=== PATIENT | female | born 1980 | race Caucasian/White ===

== ENCOUNTER 2017-06-07 13:50 | Emergency (ER) | payer OTHER ==
[2017-06-07] MEDS ORDERED: diphenhydrAMINE 50 MG/ML VIAL ONE (14:15)
[2017-06-07] MEDS ORDERED: Metoclopramide HCl 10 MG/2 ML VIAL ONE (14:15)
[2017-06-07] MEDS ORDERED: Haloperidol Lactate 5 MG/ML VIAL ONE (15:13)
--- NOTE | 2017-06-07 15:32 | CT ---
CT BRAIN WITHOUT CONTRAST: Date: 06/07/17 PROVIDED CLINICAL HISTORY: Headache. TECHNIQUE: CT data was acquired through the brain without contrast. FINDINGS: Comparison with 02/15/10. The ventricular system appears normal in size and morphology. There is no evidence for intracranial h emorrhage or mass effect. The extracranial soft tissues and osseous structures demonstrate an unremar kable CT appearance. IMPRESSION: No evidence for intracranial hemorrhage or mass effect. POS: [facility]
== END 2017-06-07 15:30 | disposition home or self-care (01) ==
LOC: ERS 13:50
DX: R51 Headache (principal); E66.9 Obesity, unspecified; J44.9 Chronic obstructive pulmonary disease, unspecified; F41.9 Anxiety disorder, unspecified; F17.210 Nicotine dependence, cigarettes, uncomplicated
CPT/HCPCS: 70450; 96365; 96375; J1200; J1630; J2765

== ENCOUNTER 2018-03-25 20:38 | Emergency (ER) | payer OTHER ==
[2018-03-25 22:09] LABS: Bilirubin Negative (Negative); Blood, Urine Negative (Negative); Clarity TURBID (Clear); Glucose, Urine (Dipstick) Negative (Negative); Leukocyte Negative (Negative); Nitrite Negative (Negative); Protein, Urine (Dipstick) Negative (Neg-Trace); Specific Gravity, Urine 1.023 (1.002-1.036); Urobilinogen 0.2 mg/dL (0.2-1.0)
[2018-03-25 22:59] LABS: Pregnancy Test - Urine (BHCG) Negative (Negative); Pregu Control Background? CLEAR/WHITE (CLR/WHITE); Pregu Control Bar Appear? YES (CONTROL BAR); Specific Gravity 1.023 (1.002-1.036)
--- NOTE | 2018-03-25 23:09 | RAD ---
LUMBAR SPINE RADIOGRAPHS 03/25/18 PROVIDED CLINICAL HISTORY: Back pain status post injury. FINDINGS: Comparison 07/23/17. Five nonribbearing lumbar type vertebral bodies are demonstrated. Lumbar alignment appears normal. Ve rtebral body heights are preserved. Surgical clips right upper quadrant. Pedicles appear intact. IMPRESSION: No evidence for an acute osseous abnormality. POS: [facility]
[2018-03-25] MEDS ORDERED: Diazepam 5 MG TAB ONE (23:35)
[2018-03-25] MEDS ORDERED: Ketorolac Tromethamine 30 MG/ML VIAL ONE (23:35)
== END 2018-03-25 23:46 | disposition home or self-care (01) ==
LOC: ERS 20:38
DX: M54.42 Lumbago with sciatica, left side (principal); I10 Essential (primary) hypertension; J44.9 Chronic obstructive pulmonary disease, unspecified; E66.9 Obesity, unspecified; F17.200 Nicotine dependence, unspecified, uncomplicated
CPT/HCPCS: 72100; 81003; 81025; 96372; J1885

== ENCOUNTER 2020-07-15 14:17 | Emergency (ER) | payer OTHER ==
[2020-07-15] MEDS ORDERED: Lidocaine 1% w/Epinephrine 1:100K 20 ML VIAL ONE (16:07)
[2020-07-15] MEDS ORDERED: Acetaminophen 500 MG TAB ONE (16:07)
== END 2020-07-15 16:56 | disposition home or self-care (01) ==
LOC: ERS 14:17
DX: L02.412 Cutaneous abscess of left axilla (principal); I10 Essential (primary) hypertension; E11.9 Type 2 diabetes mellitus without complications; E66.9 Obesity, unspecified; J44.9 Chronic obstructive pulmonary disease, unspecified; F17.210 Nicotine dependence, cigarettes, uncomplicated
CPT/HCPCS: 10060

== ENCOUNTER 2025-01-31 19:53 | Emergency (ER) | payer BC, MEDICAID, SELFPAY ==
[2025-01-31] MEDS ORDERED: Acetaminophen 500 MG TAB ONE (20:41)
== END 2025-01-31 22:29 | disposition home or self-care (01) ==
LOC: ERS 19:53
DX: S93.401A Sprain of unspecified ligament of right ankle, initial encounter (principal); E11.9 Type 2 diabetes mellitus without complications; I10 Essential (primary) hypertension; F17.210 Nicotine dependence, cigarettes, uncomplicated; X50.1XXA Overexertion from prolonged static or awkward postures, initial encounter
CPT/HCPCS: 99283